=== PATIENT | male | born 1965 | race Hispanic/Latino ===

== ENCOUNTER → 2021-06-07 | Outpatient (CLI) | payer OTHER ==
[~2021-06-07] MED LIST: GLIP10TA9 PO; HYDR25TA PO; LISI40TA9 PO; METF-446 PO
== END | disposition home or self-care (01) ==
LOC: OIH 08:22
PROVIDERS: ATTEND Internal Medicine Cardiovascular Disease
DX: Z13.6 Encounter for screening for cardiovascular disorders (principal); R93.1 Abnormal findings on diagnostic imaging of heart and coronary circulation
CPT/HCPCS: 75571